=== PATIENT | female | born 1980 | race Caucasian/White ===

== ENCOUNTER 2024-12-26 12:35 | Outpatient (CLI) | payer BC, SELFPAY ==
--- NOTE | 2024-12-26 13:00 | CRLHL7_ITS ---
For Patients: As a result of the Century Cures Act, medical imaging exams and procedure reports are released immediately into your electronic medical record. You may view this report before your referring provider. If you have questions, please contact your health care provider. Indication: LOWER, ABDOMINAL INCISION, BULGE WITH CONCERN OF POSSIBLE HERNIA, SMALL BULGE IN LOWER LEFT QUADRANT Technique: Noncontrast CT abdomen and pelvis Please note that all CT scans at this facility use dose modulation, iterative reconstruction, and/or weight-based dosing when appropriate to reduce radiation dose to as low as reasonably achievable. Comparison: None Findings: Lung bases are clear. Postop changes of bilateral mastectomy. Normal noncontrast enhanced liver and spleen. Normal gallbladder. Pancreas unremarkable. Normal kidneys and adrenal glands. A few scattered sub cm central mesenteric lymph nodes are present, nonspecific. Bladder normal. Status post total hysterectomy. Sigmoid diverticulosis. No diverticulitis. No bowel obstruction or free air. No free fluid or abscess. Appendix is normal in caliber with incidental 3 millimeter appendicolith. No abdominal wall hernia is present. Degenerative disc disease L3-4. Slight degenerative spondylolisthesis of L4 on L5. Impression: No abdominal wall hernia. Sigmoid diverticulosis. No diverticulitis. A few scattered subcentimeter central mesenteric lymph nodes compatible with mild incidental mesenteric panniculitis. Please note that all CT scans at this facility use dose modulation, iterative reconstruction, and/or weight-based dosing when appropriate to reduce radiation dose to as low as reasonably achievable. Dictated by Zachary Jacobs MD @ 12/26/2024 1:45:26 PM (Electronically Signed)
== END 2024-12-26 12:36 | disposition home or self-care (01) ==
PROVIDERS: Visit Provider Surgery
DX: R10.9 Unspecified abdominal pain (principal); K57.30 Diverticulosis of large intestine without perforation or abscess without bleeding; K65.4 Sclerosing mesenteritis
CPT/HCPCS: 74176

== ENCOUNTER 2025-03-22 09:10 | Outpatient (RCR) | payer BC, SELFPAY | END 2025-05-22 23:59 | disposition home or self-care (01) | LOC: CCIC 09:10 | PROVIDERS: Visit Provider Physician Assistant | DX: C50.911 Malignant neoplasm of unspecified site of right female breast (principal); Z17.0 Estrogen receptor positive status [ER+]; Z79.810 Long term (current) use of selective estrogen receptor modulators (SERMs); Z90.13 Acquired absence of bilateral breasts and nipples; M25.50 Pain in unspecified joint | CPT/HCPCS: 99202; 99204; 99214; G0463 ==